=== PATIENT | female | born 1980 | race Caucasian/White ===

== ENCOUNTER 2017-03-08 12:45 | Inpatient (IN) | payer OTHER ==
--- NOTE | 2017-03-08 14:16 | Emergency Department Report ---
HPI - General Chief Complaint: Extremity Injury, Lower Time Seen by Provider: 03/08/17 13:34 - HPI HPI: This is a 36-year-old female presents the emergency department, sent in by her physician at [facility], Dr Berry, with the need for a left lower extremity Doppler ultrasound to rule out a DVT. The patient has been having pain to the left leg for the past 4 days from the knee down to the foot and ankle. She complains of some swelling when compared to the right side. She is able to bear weight and ambulate but increases her discomfort. She denies any trauma to the area. She is not taken anything for her symptoms prior to presentation. The patient was diagnosed at the clinic today as being and this was confirmed by blood draw at that time. She denies any abdominal pain, vaginal bleeding or discharge. The patient came to the hospital solely for her leg pain complaint. The patient speaks only Stateless but her son is bedside and is translating for us. ED Past Medical Hx - Past Medical History Previous Medical History?: No - Surgical History Hx Appendectomy: Yes - Social History Smoking Status: Never Smoker Substance Use Type: None - Medications Home Medications: Home Medications Medication Instructions Recorded Confirmed Last Taken Type No Known Home Medications [No 03/08/17 03/08/17 Unknown History Reported Home Medications] ED Review of Systems ROS: Stated complaint: LEG PAIN Other details as noted in HPI Comment: All other systems reviewed and negative Constitutional: denies: chills, fever Eyes: denies: eye pain, eye discharge, vision change ENT: denies: ear pain, throat pain Respiratory: denies: cough, shortness of breath, wheezing Cardiovascular: edema. denies: chest pain, palpitations Gastrointestinal: denies: abdominal pain, nausea, diarrhea Genitourinary: denies: urgency, dysuria, discharge Musculoskeletal: myalgia. denies: back pain Skin: denies: rash, lesions Neurological: denies: headache, weakness, paresthesias Physical Exam - Physical Exam Vital Signs: Vital Signs 03/08/17 03/08/17 12:59 14:00 Temperature 97.5 F L 97.7 F Pulse Rate 77 87 Respiratory 18 18 Rate Blood Pressure 138/87 Blood Pressure 128/84 [Left] O2 Sat by Pulse 100 98 Oximetry Physical Exam: GENERAL: The patient is well-developed well-nourished. HEENT: Normocephalic. Atraumatic. Extraocular motions are intact. Patient has moist mucous membranes. NECK: Supple. Trachea is midline. CHEST/LUNGS: Clear to auscultation. There is no respiratory distress noted. HEART/CARDIOVASCULAR: Regular. There is no tachycardia. There is no gallop rub or murmur. ABDOMEN: Abdomen is soft, nontender. Patient has normal bowel sounds. There is no abdominal distention. SKIN: There is some mild nonpitting swelling to the left lower extremity from the knee distally when compared to the right. There is some warmth but no erythema, bleeding, weeping or drainage. NEURO: The patient is awake, alert, and oriented. The patient is cooperative. The patient has no focal neurologic deficits. The patient has normal speech and gait. MUSCULOSKELETAL: There is tenderness to palpation to the left calf and tib-fib region with a positive Homans's sign. Pedal pulses +2 over 4 bilaterally. There is no limitation range of motion. ED Course Vital Signs 03/08/17 03/08/17 12:59 14:00 Temperature 97.5 F L 97.7 F Pulse Rate 77 87 Respiratory 18 18 Rate Blood Pressure 138/87 Blood Pressure 128/84 [Left] O2 Sat by Pulse 100 98 Oximetry - Consultations Consultation #1: I spoke with the BOILER INSPECTOR addiction medicine physician, Dr. Alpesh Angulo, who agrees that the best treatment for DVT is Lovenox. 03/08/17 15:29 ED Medical Decision Making - Lab Data Result diagrams: 03/09/17 07:00 03/09/17 07:00 - Radiology Data Radiology results: report reviewed Left lower extremity venous Doppler was positive for acute DVT from the left posterior tibial and peroneal trunk distally. - Medical Decision Making This is a 36-year-old female presents to the emergency department with a four-day history of left lower extremity pain and some swelling that is worst in the calf and distally. There is been no recent trauma. The patient was seen at her clinic today and found allegedly to be by some type of blood test. She was sent in here for an evaluation of her leg pain. The left lower cavity Doppler was positive for acute DVT. Some blood work has been drawn and so far is unremarkable but I am waiting on confirmation of the patient 's . However I spoke with the BOILER INSPECTOR physician on-call, Dr. Angulo, who recommends Lovenox as a safe treatment for patients with DVT. No further BOILER INSPECTOR evaluation has been started in the emergency department as the patient has no complaint of abdominal pain, vaginal bleeding. The patient will be admitted to hospital to start getting her therapeutic on anticoagulation and for further evaluation of her coagulopathy. She's been accepted for admission by the hospitalist, Dr Mccloud. - Differential Diagnosis DVT, muscle spasm, muscle strain, occult fracture Critical Care Time: No Critical care attestation.: If time is entered above; I have spent that time in minutes in the direct care of this critically ill patient, excluding procedure time. ED Disposition Clinical Impression: Leg pain, left Deep vein thrombosis (DVT) of left lower extremity Qualifiers: Affected thrombotic vein of extremity: unspecified vein of extremity Chronicity : acute Qualified Code(s): I82.402 - Acute embolism and thrombosis of unspecified deep veins of left lower extremity Qualifiers: Weeks of gestation: unspecified Qualified Code(s): Z33.1 - state, incidental Disposition: OP ADMITTED IP TO THIS HOSP Is pt being admited?: Yes Condition: Stable Time of Disposition: 15:46
[2017-03-08] MEDS ORDERED: LOVENOX SUB-Q SCH ×2 (15:00)
[2017-03-08 15:12] LABS: Basophils % (Auto) 0.4 % (0.0-1.8); Eosinophils % (Auto) 0.5 % (0.0-4.3); Hematocrit 29.6 % (30.3-42.9); Mean Corpuscular HGB Conc 31 % (30-34); Platelet Count 283 K/mm3 (140-440); Red Blood Count 4.53 M/mm3 (3.65-5.03); Red Cell Distribution Width 18.8 % (13.2-15.2); White Blood Count 11.2 K/mm3 (4.5-11.0)
[2017-03-08] MEDS ORDERED: LOVENOX SUB-Q ONE (15:23)
[2017-03-08 15:32] LABS: INR 1.1 (0.87-1.13)
[2017-03-08] MEDS ORDERED: MILK OF MAGNESIA PO PRN (15:32)
[2017-03-08] MEDS ORDERED: ZOFRAN IV PRN (15:32)
[2017-03-08] MEDS ORDERED: DULCOLAX PR PRN (15:32)
[2017-03-08] MEDS ORDERED: TYLENOL PO ONE (15:32)
[2017-03-08] MEDS ORDERED: TYLENOL ONE (15:33)
--- NOTE | 2017-03-08 16:02 | History and Physical Report ---
History of Present Illness Date of examination: 03/08/17 Date of admission: 03/08/2017 Chief complaint: Left lower leg pain History of present illness: Patient is 36 years old female with no significant PMH. Patient presents to the ED with C/O of left lower extremity for the past 4day. Patient noted onset of the Left lower leg stiffness and swelling. [facility] and was sent to the ED. Also patient was diagnosed at the clinic today as being . She denies any chest pain, SOB or tobacco use. Past History Past Medical History: No medical history Past Surgical History: No surgical history Social history: Medications and Allergies Allergies Allergy/AdvReac Type Severity Reaction Status Date / Time No Known Allergies Allergy Unverified 03/08/17 12:55 Home Medications Medication Instructions Recorded Confirmed Last Taken Type No Known Home Medications [No 03/08/17 03/08/17 Unknown History Reported Home Medications] Active Meds: Active Medications Acetaminophen (Tylenol) 650 mg PO Q4H PRN PRN Reason: Pain MILD(1-3)/Fever >100.5/PERDUE Bisacodyl (Dulcolax) 10 mg [place] QDAY PRN PRN Reason: Constipation unrelieved by MOM Enoxaparin Sodium (Lovenox) 80 mg SUB-Q Q12HR RACHID Last Admin: 03/08/17 15:30 Dose: 80 mg Enoxaparin Sodium (Lovenox) 80 mg SUB-Q BID RACHID Magnesium Hydroxide (Milk Of Magnesia) 30 ml PO Q4H PRN PRN Reason: Constipation Ondansetron HCl (Zofran) 4 mg IV Q8H PRN PRN Reason: N/V unrelieved by Reglan Review of Systems Constitutional: no weight loss, no weight gain, no fever, no chills, no sweats Ears, nose, mouth and throat: no ear pain, no ear discharge, no tinnitis, no decreased hearing Breasts: normal Cardiovascular: no edema, no syncope, no lightheadedness, no shortness of breath , no dyspnea on exertion, no paroxysmal nocturnal dyspnea, no claudication, no high blood pressure Respiratory: no cough with sputum, no excessive sputum, no hemoptysis Gastrointestinal: no abdominal pain, no nausea, no vomiting, no diarrhea Genitourinary Female: no dyspareunia, no dysmenorrhea, no pelvic pain, no flank pain, no urinary frequency, no urgency Menstruation: cycle > 35 days Musculoskeletal: no neck stiffness, no neck pain Integumentary: no rash, no pruritis, no redness, no wounds Neurological: no paralysis, no weakness, no parathesias, no tingling, no seizures, no syncope Psychiatric: no anxiety, no memory loss, no sleep disturbances Endocrine: no cold intolerance, no heat intolerance, no polyphagia Hematologic/Lymphatic: no easy bruising, no easy bleeding Allergic/Immunologic: no urticaria Exam - Constitutional Vitals: Temp Pulse Resp BP Pulse Ox 97.7 F 87 18 128/84 98 03/08/17 14:00 03/08/17 14:00 03/08/17 14:00 03/08/17 14:00 03/08/17 14:00 Results - Labs CBC & Chem 7: 03/08/17 14:57 03/08/17 14:57 Labs: Laboratory Last Values [place] % (Auto) 7.3 % (0.0-7.3) 03/08/17 14:57 Eos % (Auto) 0.5 % (0.0-4.3) 03/08/17 14:57 [place] # 0.8 K/mm3 (0.0-0.8) 03/08/17 14:57 Eos # 0.1 K/mm3 (0.0-0.4) 03/08/17 14:57 Baso # 0.0 K/mm3 (0.0-0.1) 03/08/17 14:57 Seg Neutrophils % 77.4 % (40.0-70.0) H 03/08/17 14:57 Seg Neutrophils # 8.6 K/mm3 (1.8-7.7) H 03/08/17 14:57 PT 14.1 Sec. (12.2-14.9) 03/08/17 14:57 INR 1.10 (0.87-1.13) 03/08/17 14:57 APTT 29.0 Sec. (24.2-36.6) 03/08/17 14:57 Assessment and Plan Assessment and plan: ASSESSMENT/PLAN 1.Deep Vein Thrombosis We will admit to Med-Surg unit.Patient does not have insurance and doesn't afford medication. Lovenox given in the ED Her EKG was normal, trop negative, coags WNL Patient is comfortable no SOB, Vital sign stable will continue to monitor. 2. Positive HCG Follow up with WASH PLANT OPERATOR as OP
[2017-03-08 16:20] LABS: Anion Gap 20 mmol/L; Blood Urea Nitrogen 6 mg/dL (7-17); Calcium 8.7 mg/dL (8.4-10.2); Carbon Dioxide 20 mmol/L (22-30); Chloride 98.5 mmol/L (98-107); Glucose 80 mg/dL (65-100); Potassium 4.2 mmol/L (3.6-5.0); Sodium 134 mmol/L (137-145)
[2017-03-08 16:33] LABS: Mean Corpuscular Hemoglobin 20 pg (28-32); Mean Corpuscular Volume 65 fl (79-97)
--- NOTE | 2017-03-08 17:16 | Admit Criteria Form ---
Admission Criteria Documentation: DEEP VENOUS THROMBOSIS OF LOWER EXTREMITIES Clinical Indications for Admission to Inpatient Care ( Place 'X' for any and all applicable criteria): Admission is indicated for ANY ONE of the following (1)(2)(3)(4): [ ]I. Documented extensive thrombosis (e.g., clot in vena cava or above iliofemoral bifurcation) [ ]II. Limb-threatening thrombosis (e.g., phlegmasia cerulea dolens) [ ]III. Active bleeding [ ]IV. Recent surgery (e.g., within 6 weeks) [ ]V. Active peptic ulcer disease [ ]. Thrombosis while on anticoagulation [X ]VII. [X ]VIII. Appropriate monitoring and therapy cannot be provided in home or outpatient setting [ ]IX. Thrombolysis (e.g., catheter-directed) or pharmaco mechanical thrombectomy needed (3) [ ]X. Vena cava filter placement planned (3) [ ]XI. Severely diminished cardiopulmonary reserve (e.g., pulmonary hypertension) [ ]XII. Severe renal failure (e.g., GFR less than 30 mL/min/1.73m2 (0.5 mL/sec /1.73m2)) [ ]XIII. Known clotting abnormality or deficiency (antithrombin III, protein C , or protein S) [ ]XIV. History of heparin-induced thrombocytopenia [ ]XV . Personal or family history of bleeding tendency or familial bleeding disorder that requires inpatient admission rather than observation care (Also use Deep Venous Thrombosis of Lower Extremities: Observation Care as appropriate) because of ANY ONE of the following: [ ]a) Significant allergic, autoimmune (thrombocytopenia), or coagulopathic reaction occurs in response to anticoagulation [ ]b) Other significant finding or clinical condition judged not to be within the scope of observation care Extended stay beyond goal length of stay may be needed for(1)(19): [ ]a) Hemorrhage or recent surgery(3) [ ]b) Inadequate oral anticoagulation [ ]c) Recurrent thromboembolism(3) [ ]d) Heparin-induced thrombocytopenia(14) The original [facility] content created by [facility] has been revised. The portions of the content which have been revised are identified through the use of italic text or in bold, and [facility] has neither reviewed nor approved the modified material. All other unmodified content is copyright [facility]. Please see references footnoted in the original [facility] edition 2016 Admission Criteria Met: Yes
[2017-03-09] MEDS: LOVENOX SUB-Q SCH ×2 (03:20→18:00)
[2017-03-09 07:42] LABS: Basophils % (Auto) 0.6 % (0.0-1.8); Eosinophils % (Auto) 2.2 % (0.0-4.3); Hemoglobin 8.5 gm/dl (10.1-14.3); Mean Corpuscular HGB Conc 32 % (30-34); Mean Corpuscular Volume 65 fl (79-97); Platelet Count 269 K/mm3 (140-440); Red Blood Count 4.15 M/mm3 (3.65-5.03)
[2017-03-09 07:43] LABS: Mean Corpuscular Hemoglobin 21 pg (28-32)
[2017-03-09 08:09] LABS: Alanine Aminotransferase 17 units/L (7-56); Albumin 3.3 g/dL (3.9-5); Albumin/Globulin Ratio 0.9 %; Alkaline Phosphatase 79 units/L (35-129); Anion Gap 19 mmol/L; Blood Urea Nitrogen 9 mg/dL (7-17); Calcium 8.4 mg/dL (8.4-10.2); Carbon Dioxide 19 mmol/L (22-30); Chloride 101.6 mmol/L (98-107); Glucose 94 mg/dL (65-100); Potassium 3.7 mmol/L (3.6-5.0); Sodium 136 mmol/L (137-145); Total Protein 6.8 g/dL (6.3-8.2)
--- NOTE | 2017-03-09 09:32 | Progress Note ---
Assessment and Plan Assessment and plan: Patient is 36 years old female with no significant PMH. Patient presents to the ED with C/O of left lower extremity for the past 4 days. Patient noted onset of the Left lower leg stiffness and swelling, and although able to bear weight, has been having difficulty ambulating due to discomfort. She went to the clinic today and was sent to the ED. Also patient was diagnosed at the clinic today as being . on arrival to the hospital, us of lower ext reviews left lower ext DVT. She denies any chest pain, SOB or tobacco use, Vaginal bleed or abdominal pain, ER physician spoke with CHILD SPECIALIST who recommended lovenox, patient follows with physician at [facility] with Dr Berry, she is unisured. * LEFT LOWER EXT DVT * Left lower ext pain -secondary to DVT * Iron def anemia * IUP Plan: * continue lovenox * start on ferrous sulfate * CHILD SPECIALIST consult * vitamins outpatient- discussed with patient and she will start * case management consult, as patient will need prolonged > 3 months lovenox. if she can't afford, will consider vascular consult for IVC filter placement * dvt/gi prophy * pain control * CHILD SPECIALIST follow up outpatient. History Interval history: Patient seen and examined in no acute distress still with some pain in the left lower extremity on ambulation. Otherwise no shortness of breath nausea vomiting or diarrhea. No other adverse event reported to me. Hospitalist Physical - Physical exam Narrative exam: VITAL SIGNS: Reviewed. GENERAL: The patient appeared well nourished and normally developed. Vital signs as documented. HEAD: No signs of head trauma. EYES: Pupils are equal. Extraocular motions intact. EARS: Hearing grossly intact. MOUTH: Oropharynx is normal. NECK: No adenopathy, no JVD. CHEST: Chest with clear breath sounds bilaterally. No wheezes, rales, or rhonchi. CARDIAC: Regular rate and rhythm. S1 and S2, without murmurs, gallops, or rubs. VASCULAR: No Edema. Peripheral pulses normal and equal in all extremities. ABDOMEN: Soft, without detectable tenderness. No sign of distention. No rebound or guarding, and no masses palpated. Bowel Sounds normal. MUSCULOSKELETAL: Good range of motion of all major joints. Extremities without clubbing, cyanosis or edema. NEUROLOGIC EXAM: Alert and oriented x 3. No focal sensory or strength deficits. Speech normal. Follows commands. PSYCHIATRIC: Mood normal. SKIN: No rash or lesions. - Constitutional Vitals: Temp Pulse Resp BP Pulse Ox 98.5 F 76 19 107/58 98 03/09/17 06:00 03/09/17 06:00 03/09/17 06:00 03/09/17 06:00 03/09/17 06:00 Results - Labs CBC & Chem 7: 03/09/17 07:00 03/09/17 07:00 Labs: Laboratory Last Values WBC 9.0 K/mm3 (4.5-11.0) 03/09/17 07:00 RBC 4.15 M/mm3 (3.65-5.03) 03/09/17 07:00 Hgb 8.5 gm/dl (10.1-14.3) L 03/09/17 07:00 Hct 27.0 % (30.3-42.9) L 03/09/17 07:00 MCV 65 fl (79-97) L 03/09/17 07:00 MCH 21 pg (28-32) L 03/09/17 07:00 MCHC 32 % (30-34) 03/09/17 07:00 RDW 19.0 % (13.2-15.2) H 03/09/17 07:00 Plt Count 269 K/mm3 (140-440) 03/09/17 07:00 Lymph % (Auto) 24.1 % (13.4-35.0) 03/09/17 07:00 [place] % (Auto) 8.6 % (0.0-7.3) H 03/09/17 07:00 Eos % (Auto) 2.2 % (0.0-4.3) 03/09/17 07:00 Baso % (Auto) 0.6 % (0.0-1.8) 03/09/17 07:00 Lymph # 2.2 K/mm3 (1.2-5.4) 03/09/17 07:00 [place] # 0.8 K/mm3 (0.0-0.8) 03/09/17 07:00 Eos # 0.2 K/mm3 (0.0-0.4) 03/09/17 07:00 Baso # 0.1 K/mm3 (0.0-0.1) 03/09/17 07:00 Seg Neutrophils % 64.5 % (40.0-70.0) 03/09/17 07:00 Seg Neutrophils # 5.8 K/mm3 (1.8-7.7) 03/09/17 07:00 PT 14.1 Sec. (12.2-14.9) 03/08/17 14:57 INR 1.10 (0.87-1.13) 03/08/17 14:57 APTT 29.0 Sec. (24.2-36.6) 03/08/17 14:57 Sodium 136 mmol/L (137-145) L 03/09/17 07:00 Potassium 3.7 mmol/L (3.6-5.0) 03/09/17 07:00 Chloride 101.6 mmol/L (98-107) 03/09/17 07:00 Carbon Dioxide 19 mmol/L (22-30) L 03/09/17 07:00 Anion Gap 19 mmol/L 03/09/17 07:00 BUN 9 mg/dL (7-17) 03/09/17 07:00 Creatinine 0.4 mg/dL (0.7-1.2) L 03/09/17 07:00 Estimated GFR > 60 ml/min 03/09/17 07:00 BUN/Creatinine Ratio 22.50 % 03/09/17 07:00 Glucose 94 mg/dL (65-100) 03/09/17 07:00 Calcium 8.4 mg/dL (8.4-10.2) 03/09/17 07:00 Total Bilirubin 0.40 mg/dL (0.1-1.2) 03/09/17 07:00 AST 18 units/L (5-40) 03/09/17 07:00 ALT 17 units/L (7-56) 03/09/17 07:00 Alkaline Phosphatase 79 units/L (35-129) 03/09/17 07:00 Total Protein 6.8 g/dL (6.3-8.2) 03/09/17 07:00 Albumin 3.3 g/dL (3.9-5) L 03/09/17 07:00 Albumin/Globulin Ratio 0.9 % 03/09/17 07:00 HCG, Quant 83200 mIU/mL (0-4) H 03/08/17 15:02
[2017-03-09] MEDS: FEOSOL PO SCH ×2 (10:50→21:37)
--- NOTE | 2017-03-09 18:57 | Consultation ---
History of Present Illness Consult date: 03/09/17 Requesting physician: BENJAMÍN BROUSSARD Reason for consult: early problem, other History of present illness: Patient is 36 years old female with no significant PMH. Patient presents to the ED with C/O of left lower extremity for the past 4 days. Patient noted onset of the Left lower leg stiffness and swelling, and although able to bear weight, has been having difficulty ambulating due to discomfort. She went to the clinic and was sent to the ED. Also patient was diagnosed at the clinic today as being . On arrival to the hospital, u/s of lower ext reviewed left lower ext DVT. She denies any chest pain, SOB or tobacco use, vaginal bleed or abdominal pain, ER physician spoke with VIDEO GAME PRODUCER who recommended lovenox, [facility]. Ob u/s shows she is currently 9 weeks , thus I have been consulted for management. Past History Past Medical History: deep vein thrombosis Past Surgical History: no surgical history Social history: no significant social history - Obstetrical History Expected Date of Delivery: 10/13/17 Actual Gestation: 9 Week(s) 0 Day(s) Medications and Allergies Allergies Allergy/AdvReac Type Severity Reaction Status Date / Time No Known Allergies Allergy Unverified 03/08/17 12:55 Home Medications Medication Instructions Recorded Confirmed Last Taken Type Enoxaparin [Lovenox] 80 mg SUB-Q Q12H #60 syringe 03/10/17 Unknown Rx Ferrous Sulfate [Feosol 325 MG tab] 325 mg PO BID #60 tablet 03/10/17 Unknown Rx Active Meds: Active Medications Acetaminophen (Tylenol) 650 mg PO Q4H PRN PRN Reason: Pain MILD(1-3)/Fever >100.5/PERDUE Bisacodyl (Dulcolax) 10 mg [place] QDAY PRN PRN Reason: Constipation unrelieved by MOM Enoxaparin Sodium (Lovenox) 80 mg SUB-Q Q12H [facility] Last Admin: 03/09/17 03:20 Dose: 80 mg Ferrous Sulfate (Feosol) 325 mg PO BID [facility] Last Admin: 03/09/17 10:50 Dose: 325 mg Magnesium Hydroxide (Milk Of Magnesia) 30 ml PO Q4H PRN PRN Reason: Constipation Ondansetron HCl (Zofran) 4 mg IV Q8H PRN PRN Reason: N/V unrelieved by Esvin Review of Systems All systems: negative - Vital Signs Vital signs: Vital Signs Temp Pulse Resp BP Pulse Ox 97.5 F L 77 18 138/87 100 03/08/17 12:59 03/08/17 12:59 03/08/17 12:59 03/08/17 12:59 03/08/17 12:59 Temp Pulse Resp BP Pulse Ox 98.2 F 71 20 111/70 99 03/09/17 16:44 03/09/17 16:44 03/09/17 16:44 03/09/17 16:44 03/09/17 16:44 - Physical Exam Breasts: Positive: deferred Cardiovascular: Regular rate Lungs: Positive: Clear to auscultation Abdomen: Positive: normal appearance Genitourinary (Female): Positive: normal external genitalia Extremities: Positive: tenderness (left leg and foot), edema Results Result Diagrams: 03/09/17 07:00 03/09/17 07:00 Abnormal lab results 03/09/17 03/09/17 Range/Units 07:00 07:00 Hgb 8.5 L (10.1-14.3) gm/dl Hct 27.0 L (30.3-42.9) % MCV 65 L (79-97) fl MCH 21 L (28-32) pg RDW 19.0 H (13.2-15.2) % [place] % (Auto) 8.6 H (0.0-7.3) % Sodium 136 L (137-145) mmol/L Carbon Dioxide 19 L (22-30) mmol/L Creatinine 0.4 L (0.7-1.2) mg/dL Albumin 3.3 L (3.9-5) g/dL All other labs normal. Ultrasound: report reviewed Assessment and Plan - Patient Problems (1) Deep vein thrombosis (DVT) of left lower extremity Onset Date: 03/10/17 Current Visit: Yes Status: Acute Qualifiers: Affected thrombotic vein of extremity: unspecified vein of extremity Chronicity: acute Qualified Code(s): I82.402 - Acute embolism and thrombosis of unspecified deep veins of left lower extremity (2) Leg pain, left Onset Date: 03/10/17 Current Visit: Yes Status: Acute (3) Onset Date: 03/10/17 Current Visit: Yes Status: Acute Qualifiers: Weeks of gestation: 9 weeks Qualified Code(s): Z3A.09 - 9 weeks gestation of Plan to address problem: A: IUP @ 9 weeks Left lower leg DVT - currently on Lovenox P: Agree with admission for left leg DVT management with Lovenox No Obstetrical intervention at this time. She can follow up with me on an outpatient basis.
[2017-03-09] MEDS: TYLENOL PO PRN (21:38)
[2017-03-10] MEDS: LOVENOX SUB-Q SCH ×2 (05:43→17:20)
--- NOTE | 2017-03-10 09:11 | Ultrasound Report ---
ULTRASOUND OB LESS THAN 14 WEEKS FETUS ULTRASOUND TRANSVAGINAL HISTORY: well being. TECHNIQUE: Transabdominal and transvaginal ultrasound with color and spectral doppler interrogation. The uterus measures 13 x 8 x 10 cm. An intrauterine gestational sac containing a pole and yolk sac are identified. Heart rate measures 174 beats per minute. [place]-rump length measures 21.8 mm which correlates with an 8 week 6 day . Estimated due date 10/13/17. There is a moderate subchorionic hemorrhage along the anterior, inferior gestational sac. The ovaries are not visualized. No large adnexal cyst or mass. No pelvic fluid collection. IMPRESSION: Viable, single intrauterine as described. Subchorionic hemorrhage.
--- NOTE | 2017-03-10 09:11 | Ultrasound Report ---
ULTRASOUND OB LESS THAN 14 WEEKS FETUS ULTRASOUND TRANSVAGINAL HISTORY: well being. TECHNIQUE: Transabdominal and transvaginal ultrasound with color and spectral doppler interrogation. The uterus measures 13 x 8 x 10 cm. An intrauterine gestational sac containing a pole and yolk sac are identified. Heart rate measures 174 beats per minute. [place]-rump length measures 21.8 mm which correlates with an 8 week 6 day . Estimated due date 10/13/17. There is a moderate subchorionic hemorrhage along the anterior, inferior gestational sac. The ovaries are not visualized. No large adnexal cyst or mass. No pelvic fluid collection. IMPRESSION: Viable, single intrauterine as described. Subchorionic hemorrhage.
[2017-03-10] MEDS: FEOSOL PO SCH ×2 (09:27→21:31)
--- NOTE | 2017-03-10 10:25 | Discharge Summary ---
Providers - Providers Date of Admission: 03/08/17 15:32 Attending physician: IGNACIO FARIA MD 03/09/17 09:37 Consult to Case Management [CONS] Routine Services Needed at Discharge: Lace Mender Notified:: [email or web address] Additional Physician Instructions: PATEINT NEEDS LOVENOX FOR GREATER THAN 3 MONTHS. SHE IS UNINUSRED. 03/09/17 15:01 Consult to Physician [CONS] Routine Consulting Provider: NAEEM HOLGUIN Reason For Exam: IUP and DVT Place consult to:: Georgette HOLGUIN Notified:: pager Phone number called:: [phone] Was contact made?: Yes Time called:: 18:28 Primary care physician: ADMISSIONS CONSULTANT Hospitalization Condition: Stable Hospital course: 36-year-old woman who is 6 months who presented with left lower extremity swelling, she went on to have vascular ultrasound that showed acute DVT in the extremity. Due to , Lovenox is the only safe and approved medication for treatment of DVT. She was given Lovenox while in hospital and outpatient Lovenox was arranged for her, Lovenox CT also provided. She was advised to continue to follow-up with her mine captain Dr. Babin at [facility]. She was also started on iron supplements for iron deficiency anemia and continued on vitamins and folic acid. Discharge diagnoses Acute left lower extremity DVT , 6 month Iron deficiency anemia Disposition: DISCHARGED TO HOME OR SELFCARE Time spent for discharge: 35 minutes Core Measure Documentation - Palliative Care Palliative Care/ Comfort Measures: Not Applicable - Core Measures Any of the following diagnoses?: DVT/PE - VTE Discharge Requirements Deep Vein Thrombosis/Pulmonary Embolism Present on Admission: Yes Has pt received <5 days of overlap therapy or INR<2.0: Yes (being dc on lovenox) Anticoagulant overlap therapy prescribed at discharge: Yes Exam - Constitutional Vitals: Temp Pulse Resp BP Pulse Ox 98.8 F 69 18 110/59 99 03/10/17 08:45 03/10/17 08:45 03/10/17 08:45 03/10/17 08:45 03/10/17 08:45 General appearance: Present: no acute distress, well-nourished - EENT Eyes: Present: PERRL ENT: hearing intact, clear oral mucosa - Neck Neck: Present: supple, normal ROM - Respiratory Respiratory effort: normal Respiratory: bilateral: CTA - Cardiovascular Heart Sounds: Present: S1 & S2. Absent: rub, click - Extremities Extremities: pulses symmetrical Extremity abnormal: edema (left leg) Peripheral Pulses: within normal limits - Abdominal General gastrointestinal: Present: soft, non-tender, non-distended, normal bowel sounds Female genitourinary: Present: normal - Integumentary Integumentary: Present: clear, warm, dry - Musculoskeletal Musculoskeletal: gait normal, strength equal bilaterally - Psychiatric Psychiatric: appropriate mood/affect, intact judgment & insight - Neurologic Neurologic: CNII-XII intact, moves all extremities Plan Follow up with: PRIMARY CARE, [Primary Care Provider] - 3-5 Days Prescriptions: Enoxaparin [Lovenox] 80 mg SUB-Q Q12H #60 syringe Ferrous Sulfate [Feosol 325 MG tab] 325 mg PO BID #60 tablet
--- NOTE | 2017-03-10 14:41 | Progress Note ---
Assessment and Plan Assessment and plan: Patient is 36 years old female with no significant PMH. Patient presents to the ED with C/O of left lower extremity for the past 4 days. Patient noted onset of the Left lower leg stiffness and swelling, and although able to bear weight, has been having difficulty ambulating due to discomfort. She went to the clinic today and was sent to the ED. Also patient was diagnosed at the clinic today as being . on arrival to the hospital, us of lower ext reviews left lower ext DVT. She denies any chest pain, SOB or tobacco use, Vaginal bleed or abdominal pain, ER physician spoke with HOOKER INSPECTOR who recommended lovenox, patient follows with physician at [facility] with Dr Berry, she is unisured. * LEFT LOWER EXT DVT * Left lower ext pain -secondary to DVT * Iron def anemia * IUP Plan: * continue lovenox * start on ferrous sulfate * HOOKER INSPECTOR consult * vitamins outpatient- discussed with patient and she will start * case management consult, as patient will need prolonged > 3 months lovenox. * Pharmacy will provide her with 10 days worth of lovenox tomorrow, after which she will organize it herself with [employer] discount * dvt/gi prophy * pain control * HOOKER INSPECTOR follow up outpatient. History Interval history: still c/o Left leg swelling, denies tenderness or pain, Hospitalist Physical - Physical exam Narrative exam: VITAL SIGNS: Reviewed. GENERAL: The patient appeared well nourished and normally developed. Vital signs as documented. HEAD: No signs of head trauma. EYES: Pupils are equal. Extraocular motions intact. EARS: Hearing grossly intact. MOUTH: Oropharynx is normal. NECK: No adenopathy, no JVD. CHEST: Chest with clear breath sounds bilaterally. No wheezes, rales, or rhonchi. CARDIAC: Regular rate and rhythm. S1 and S2, without murmurs, gallops, or rubs. VASCULAR: LLE edema ABDOMEN: Soft, without detectable tenderness. No sign of distention. No rebound or guarding, and no masses palpated. Bowel Sounds normal. MUSCULOSKELETAL: Good range of motion of all major joints. Left leg edema NEUROLOGIC EXAM: Alert and oriented x 3. No focal sensory or strength deficits. Speech normal. Follows commands. PSYCHIATRIC: Mood normal. SKIN: No rash or lesions. - Constitutional Vitals: Temp Pulse Resp BP Pulse Ox 98.1 F 74 18 112/68 100 03/10/17 12:53 03/10/17 12:53 03/10/17 12:53 03/10/17 12:53 03/10/17 12:53 General appearance: Present: no acute distress, well-nourished Results - Labs CBC & Chem 7: 03/09/17 07:00 03/09/17 07:00 Labs: Laboratory Last Values WBC 9.0 K/mm3 (4.5-11.0) 03/09/17 07:00 RBC 4.15 M/mm3 (3.65-5.03) 03/09/17 07:00 Hgb 8.5 gm/dl (10.1-14.3) L 03/09/17 07:00 Hct 27.0 % (30.3-42.9) L 03/09/17 07:00 MCV 65 fl (79-97) L 03/09/17 07:00 MCH 21 pg (28-32) L 03/09/17 07:00 MCHC 32 % (30-34) 03/09/17 07:00 RDW 19.0 % (13.2-15.2) H 03/09/17 07:00 Plt Count 269 K/mm3 (140-440) 03/09/17 07:00 Lymph % (Auto) 24.1 % (13.4-35.0) 03/09/17 07:00 Cecil % (Auto) 8.6 % (0.0-7.3) H 03/09/17 07:00 Eos % (Auto) 2.2 % (0.0-4.3) 03/09/17 07:00 Baso % (Auto) 0.6 % (0.0-1.8) 03/09/17 07:00 Lymph # 2.2 K/mm3 (1.2-5.4) 03/09/17 07:00 Cecil # 0.8 K/mm3 (0.0-0.8) 03/09/17 07:00 Eos # 0.2 K/mm3 (0.0-0.4) 03/09/17 07:00 Baso # 0.1 K/mm3 (0.0-0.1) 03/09/17 07:00 Seg Neutrophils % 64.5 % (40.0-70.0) 03/09/17 07:00 Seg Neutrophils # 5.8 K/mm3 (1.8-7.7) 03/09/17 07:00 PT 14.1 Sec. (12.2-14.9) 03/08/17 14:57 INR 1.10 (0.87-1.13) 03/08/17 14:57 APTT 29.0 Sec. (24.2-36.6) 03/08/17 14:57 Sodium 136 mmol/L (137-145) L 03/09/17 07:00 Potassium 3.7 mmol/L (3.6-5.0) 03/09/17 07:00 Chloride 101.6 mmol/L (98-107) 03/09/17 07:00 Carbon Dioxide 19 mmol/L (22-30) L 03/09/17 07:00 Anion Gap 19 mmol/L 03/09/17 07:00 BUN 9 mg/dL (7-17) 03/09/17 07:00 Creatinine 0.4 mg/dL (0.7-1.2) L 03/09/17 07:00 Estimated GFR > 60 ml/min 03/09/17 07:00 BUN/Creatinine Ratio 22.50 % 03/09/17 07:00 Glucose 94 mg/dL (65-100) 03/09/17 07:00 Calcium 8.4 mg/dL (8.4-10.2) 03/09/17 07:00 Total Bilirubin 0.40 mg/dL (0.1-1.2) 03/09/17 07:00 AST 18 units/L (5-40) 03/09/17 07:00 ALT 17 units/L (7-56) 03/09/17 07:00 Alkaline Phosphatase 79 units/L (35-129) 03/09/17 07:00 Total Protein 6.8 g/dL (6.3-8.2) 03/09/17 07:00 Albumin 3.3 g/dL (3.9-5) L 03/09/17 07:00 Albumin/Globulin Ratio 0.9 % 03/09/17 07:00 HCG, Quant 02912 mIU/mL (0-4) H 03/08/17 15:02
[2017-03-10] MEDS: TYLENOL PO PRN (21:31)
[2017-03-11] MEDS: LOVENOX SUB-Q SCH ×2 (04:56→17:36)
[2017-03-11] MEDS: FEOSOL PO SCH (09:49)
[2017-03-11 13:25] VITALS: BP 108/70
--- NOTE | 2017-03-12 15:11 | Vascular Lab Report ---
Left Lower Extremity Venous Duplex Study: Reason for Exam: Pain of the left lower extremity. Comments on the Right: A limited duplex study was done of the proximal veins of the right lower extremity. All veins visualized are freely compressible without evidence of internal echogenicity. Flow is spontaneous and phasic throughout. No evidence of acute or chronic thrombus is seen in any of the vessels visualized. Comments on the Left: Acute deep venous thrombus involving the posterior tibial and peroneal veins of the left calf without popliteal extension. The remaining veins visualized are freely compressible without evidence of internal echogenicity. Spontaneous and phasic flow is diminished proximally. Impression: Acute left lower extremity infrapopliteal deep venous thrombus.
== END 2017-03-11 17:45 | disposition home or self-care (01) | DRG 781 ==
LOC: ED 12:45 → 4A 15:32
PROVIDERS: ADMIT Internal Medicine; ATTEND Internal Medicine
DX: O22.31 Deep phlebothrombosis in pregnancy, first trimester (principal); O99.011 Anemia complicating pregnancy, first trimester; I82.432 Acute embolism and thrombosis of left popliteal vein; Z3A.08 8 weeks gestation of pregnancy; Z90.49 Acquired absence of other specified parts of digestive tract
CPT/HCPCS: 36415; 76801; 76817; 80048; 80053; 84702; 85025; 85610; 85730; 96372; J1650